=== PATIENT | female | born 1970 | race Caucasian/White ===

== ENCOUNTER 2023-08-13 06:21 | Day surgery (SDC) | payer BC ==
[2023-08-10 17:12] VITALS: BMI 26.2
[2023-08-13] MEDS ORDERED: LIDOCAINE 1%/EPI 1:100000 (20 ML MULTI DOSE VIAL) ONE (07:23)
[2023-08-13] MEDS ORDERED: MIDAZOLAM HCL 2 MG/2 ML SINGLE DOSE VIAL ONE (07:40)
[2023-08-13] MEDS ORDERED: ceFAZolin SODIUM 1 GM VIAL ONE (07:40)
[2023-08-13] MEDS ORDERED: PROPOFOL 20 ML ONE ×2 (07:40)
[2023-08-13] MEDS ORDERED: DEXAMETHASONE SOD PHOSPHATE 4 MG/1 ML VIAL ONE (08:26)
[2023-08-13] MEDS ORDERED: ONDANSETRON 4 MG/2 ML VIAL ONE (08:26)
[2023-08-13] MEDS ORDERED: ONDANSETRON 4 MG/2 ML VIAL IVPUSH PRN (09:29)
[2023-08-13] MEDS ORDERED: LACTATED RINGERS SOLUTION 1,000 ML IV SCH ×2 (09:30→09:45)
[2023-08-13] MEDS ORDERED: ONDANSETRON 4 MG/2 ML VIAL IVPB PRN (09:43)
[2023-08-13] MEDS ORDERED: oxyCODONE HCL 5 MG TABLET PO PRN ×2 (09:43)
[2023-08-13] MEDS: ACETAMINOPHEN 325 MG TABLET (FP) ONE (11:20)
[2023-08-13 11:46] VITALS: RESP 16; TEMP 96.9
[2023-08-13 11:50] VITALS: BP 114/66; PULSE 72
== END 2023-08-13 11:30 | disposition home or self-care (01) ==
LOC: FASU 06:21
PROVIDERS: ATTEND Plastic Surgery
PROC: 0JB70ZZ Excision of Back Subcutaneous Tissue and Fascia, Open Approach (ICD-10-PCS; principal; 2023-08-13 08:40)
DX: D21.6 Benign neoplasm of connective and other soft tissue of trunk, unspecified (principal)
CPT/HCPCS: 88304-TC; 94760